=== PATIENT | male | born 1985 | race Caucasian/White ===

== ENCOUNTER 2016-08-19 00:57 | Emergency (ER) | payer BC ==
[2016-08-19 01:02] VITALS: TEMP 97.8; BMI 30.7
[2016-08-19] MEDS ORDERED: KETOROLAC TROMETHAMINE 30 MG/1 ML VIAL IVPUSH ONE (01:06)
[2016-08-19] MEDS ORDERED: SODIUM CHLORIDE 1,000 ML IV STA (01:06)
--- NOTE | 2016-08-19 01:12 | PDOC ---
History of Present Illness - General Chief Complaint: Pain, Acute Stated Complaint: KIDNEY STONE Time Seen by Provider: 08/19/16 01:02 History Source: Patient Exam Limitations: No Limitations - History of Present Illness Initial Comments: 08/19/16 01:07 31 Y M HX OF KIDNEY STONES, NO PMHX. PTE C/O LT FLANK PAIN SEVERE STARTING 30 MIN AGO. WORSENING IN THE CAR ON HIS WAY TO THE ER, THEN, IMPROVING BUT NOT GONE. FEELING OF URINARY TENESMUS. PAIN RADIATES TO LOWER ABD BUT NOT TESTIS. NO FEVER. SOME NAUSEA BUT NO VOMITING. Past History - Past Medical History Allergies/Adverse Reactions: Allergies Allergy/AdvReac Type Severity Reaction Status Date / Time No Known Allergies Allergy Unverified 08/19/16 00:59 Home Medications: Ambulatory Orders Acetaminophen W/ Codeine #3 [Tylenol # 3] 2 combo PO Q6H PRN #20 tablet MDD 6 Tamsulosin HCl [Flomax] 0.4 mg PO DAILY #7 cap.er.24h 08/19/16 Kidney Stones: Yes - Psycho/Social/Smoking Cessation Hx Anxiety: No Suicidal Ideation: No Smoking History: Never smoked Review of Systems - Review of Systems Able to Perform ROS?: Yes Is the patient limited Moldovan proficient: No Constitutional: No: Symptoms Reported HEENTM: No: Symptoms Reported Respiratory: No: Symptoms reported Cardiac (ROS): No: Symptoms Reported ABD/GI: Yes: Symptoms Reported, See HPI : Yes: Symptoms Reported, See HPI All Other Systems: Reviewed and Negative *Physical Exam - Vital Signs Last Vital Signs Temp Pulse Resp BP Pulse Ox 97.8 F 107 H 16 148/103 100 08/19/16 01:00 08/19/16 01:00 08/19/16 01:00 08/19/16 01:00 08/19/16 01:00 - Physical Exam General Appearance: Yes: Nourished, Appropriately Dressed. No: Apparent Distress Respiratory/Chest: positive: Lungs Clear, Normal Breath Sounds. negative: Chest Tender, Respiratory Distress Cardiovascular: positive: Regular Rhythm, Regular Rate Gastrointestinal/Abdominal: positive: Soft. negative: Tender Musculoskeletal: negative: CVA Tenderness Integumentary: positive: Normal Color Neurologic: positive: Fully Oriented, Alert, Normal Mood/Affect, Normal Response , Motor Strength 5/5 ED Treatment Course - LABORATORY CBC & Chemistry Diagram: 08/19/16 01:15 08/19/16 01:15 Progress Note - Progress Note Progress Note: RENAL COLIC IVF/TORADOL/LABS/REASSESS better jai po d/c home *DC/Admit/Observation/Transfer Diagnosis at time of Disposition: Renal colic on left side - Discharge Dispostion Disposition: HOME Condition at time of disposition: Improved - Prescriptions Prescriptions: Tamsulosin HCl [Flomax] 0.4 mg PO DAILY #7 cap.er.24h Acetaminophen W/ Codeine #3 [Tylenol # 3] 2 combo PO Q6H PRN #20 tablet MDD 6 PRN Reason: Pain - Patient Instructions Additional Instructions: PLENTY OF FLUIDS MOTRIN 800 MG 3 TIMES A DAY FOR 3 DAYS FLOMAX ONCE A DAY UNTIL STONE PASSES TYLENOL #3 AT FIRST SIGN OF PAIN RETURN IF FEVER, VOMITING, SEVERE PAIN SEE YOUR UROLOGIST THIS WEEK STRAIN YOUR URINE TO CATCH THE STONE AND IF YOU DO, BRING IT TO YOUR DOCTOR
[2016-08-19] MEDS ORDERED: TAMSULOSIN HCL 0.4 MG CAP.ER.24H (FP) PO ONE (01:13)
[2016-08-19] MEDS ORDERED: TAMSULOSIN HCL 0.4 MG CAP.ER.24H (FP) ONE (01:19)
[2016-08-19] MEDS ORDERED: morphine CARPU-JECT 4 MG/1 ML DISP.SYRIN IVPUSH ONE (01:34)
[2016-08-19] MEDS ORDERED: morphine CARPU-JECT 10 MG/1 ML DISP.SYRIN ONE (01:35)
[2016-08-19 01:43] LABS: BASOPHIL 0.6 % (0-2.0); EOSINOPHIL 1.2 % (0-4.5); MCH 29.7 pg (25.7-33.7); MCHC 34.7 g/dl (32.0-35.9); MEAN CELL VOLUME 85.5 fl (80-96); MEAN PLT VOLUME 8.2 fl (7.5-11.1); NEUTROPHILS 61.2 % (42.8-82.8); PLATELET COUNT 277 K/MM3 (134-434); RDW 13.4 % (11.9-15.9); WHITE BLOOD COUNT 7.8 K/mm3 (4.0-10.0)
[2016-08-19 02:03] LABS: CALCIUM 9.5 mg/dL (8.5-10.1); CREATININE 1.4 mg/dL (0.7-1.3)
[2016-08-19] MEDS ORDERED: HYDROmorphone HCL CARPU-JECT 2 MG/1 ML DISP.SYRIN IVPUSH ONE (02:04)
[2016-08-19 02:25] LABS: URINE APPEARANCE CLEAR; URINE COLOR YELLOW; URINE GLUCOSE (UA) NEGATIVE (NEGATIVE)
[2016-08-19 02:26] LABS: URINE BILIRUBIN NEGATIVE (NEGATIVE); URINE BLOOD 3 (NEGATIVE); URINE KETONE NEGATIVE (NEGATIVE); URINE PROTEIN 1+ (NEGATIVE); URINE UROBILINOGEN NORMAL (0.2-1.0)
[2016-08-19 02:27] LABS: URINE LEUK ESTERASE NEGATIVE (NEGATIVE); URINE NITRITE NEGATIVE (NEGATIVE)
[2016-08-19 02:28] LABS: URINE BACTERIA RARE /hpf (NEGATIVE); URINE MUCUS FEW; URINE RBC 1740 /hpf (0-3); URINE WBC 13 (3-5)
[2016-08-19 02:47] VITALS: BP 122/87; PULSE 89
== END 2016-08-19 03:47 | disposition home or self-care (01) ==
LOC: FER 00:57
PROC: 3E033NZ Introduction of Analgesics, Hypnotics, Sedatives into Peripheral Vein, Percutaneous Approach (ICD-10-PCS; principal; 2016-08-19)
PROC: 3E0333Z Introduction of Anti-inflammatory into Peripheral Vein, Percutaneous Approach (ICD-10-PCS; 2016-08-19)
PROC: 3E0337Z Introduction of Electrolytic and Water Balance Substance into Peripheral Vein, Percutaneous Approach (ICD-10-PCS; 2016-08-19)
DX: N23 Unspecified renal colic (principal); Z87.442 Personal history of urinary calculi
CPT/HCPCS: 36415; 80048; 81003; 81015; 85025; 99283-25

== ENCOUNTER 2020-05-31 19:53 | Emergency (ER) | payer BC ==
[2020-05-31 20:00] VITALS: BP 149/104; PULSE 123; TEMP 100.1; BMI 30.7
== END 2020-05-31 22:16 | disposition home or self-care (01) ==
LOC: FER 19:53
DX: S80.11XA Contusion of right lower leg, initial encounter (principal)
CPT/HCPCS: 73590-TC-RT-FY; 99284-25